=== PATIENT | male | born 1975 | race Two or more races ===

== ENCOUNTER 2020-09-04 15:00 | Emergency (ER) | payer BC ==
[~2020-09-04] VITALS: Ht 167.6 cm; Wt 81.8 kg
--- NOTE | 2020-09-04 15:00 | NUR ---
PT ERIC WRIGHT FROM [facility] FOR HIGH BP AND POSSIBLE ST ELEVATION ON EKG. PT WENT IN TO URGENT CARE D/T HEADACHE & DIZZINESS THIS AM. PER EMS, BP WAS 200/112 [address]RG[address] NO [address] ELEVATION FOUND ON REPEAT EKG DONE BY EMS. PT REPORTED RESOLUTION OF HEADACHE & BP DOWN TO 187/105 PRIOR TO ARRIVAL IN ED. NO INTERVENTIONS DONE. PT A&OX4, COOPERATIVE. DENIES ANY MEDICAL HX, REPORTS NOT SEEING PCP IN SEVERAL YEARS.
--- NOTE | 2020-09-04 15:11 | NUR ---
ERP AT BS.
[2020-09-04 15:29] LABS: BASOPHILS % (AUTO) 1 % (0-1); EOSINOPHILS % (AUTO) 1 % (1-7); LYMPHOCYTES % (AUTO) 28 % (22-44); MEAN CORPUSCULAR HEMOGLOBIN 33.4 pg (27.5-34.5); MEAN CORPUSCULAR HGB CONC 34.9 g/dL (33.2-36.2); MEAN PLATELET VOLUME 9.8 fL (7.4-10.4); MONOCYTES % (AUTO) 12 % (2-9); NEUTROPHILS % (AUTO) 58 % (42-75); PLATELET COUNT 167 x10^3/uL (130-400); RED BLOOD COUNT 5.18 x10^6/uL (4.38-5.82); RED CELL DISTRIBUTION WIDTH 12.9 % (9.4-14.8)
[2020-09-04 15:46] LABS: ALBUMIN 3.5 g/dL (3.4-5.0); ANION GAP 9 mmol/L (5-15); CALCIUM 8.5 mg/dL (8.5-10.1); CHLORIDE 106 mmol/L (98-107)
[2020-09-04 15:49] LABS: CREATININE 0.56 mg/dL (0.7-1.3)
[2020-09-04] MEDS ORDERED: LISINOPRIL 10 MG TABLET ONE (16:21)
[2020-09-04 16:24] VITALS: BP 170/103
--- NOTE | 2020-09-04 16:29 | NUR ---
PT MEDICATED PER ORDERS. D/C INSTRUCTIONS, MEDS & F/U APPT RV'WD WITH PT, HE VERBALIZES UNDERSTANDING. RX GIVEN X1. EMPHASIZED TO PT F/U WITH PCP; REFERRALS PROVIDED. PT AMBULATED OUT OF ED WITH FAMILY WITHOUT DIFFICULTY.
[2020-09-04] MEDS ORDERED: LISINOPRIL 10 MG TABLET PO ONE (17:00)
== END 2020-09-04 16:30 | disposition home or self-care (01) ==
LOC: ED 16:20
DX: I10 Essential (primary) hypertension (principal); R51.9 Headache, unspecified; R94.31 Abnormal electrocardiogram [ECG] [EKG]
CPT/HCPCS: 36415; 71045; 80048; 82040; 85025; 93005; 99285